=== PATIENT | female | born 1960 | race Caucasian/White ===

== ENCOUNTER 2018-04-02 10:15 | Inpatient (IN) ==
[2018-04-02] MEDS ORDERED: Ipratropium/Albuterol Neb 3 ML IH ONE (10:22)
--- NOTE | 2018-04-02 10:23 | Emergency Department Note ---
Disposition Clinical Impression: Pneumonia Disposition: Home, Self-Care Condition: Good Referrals: Tyler Fuller MD [Primary Care Provider] - Time of Disposition: 11:35 SOB HPI - General Chief Complaint: ED Shortness of Breath/Dyspnea Stated Complaint: shortness of breath Time Seen by Provider: 04/02/18 10:18 Source: patient Mode of arrival: ambulatory Limitations: no limitations Nursing Notes Reviewed: Yes Vital Signs Reviewed: Yes - History of Present Illness On Tuesday the patient started feeling ill in the last week is seen 2 different nurse practitioners. Patient thought she had the flu. Nobody did anything flu testing on her. Today she is getting worse so she came to the ER. She Panacea of rattling in her chest and fever. Pt Subjective Complaint: shortness of breath Onset (ago): day(s) (6 days) Severity: moderate Consistency/Duration: constant Improves with: nothing Worsens with: nothing Associated symptoms: Reports: fever, cough Treatment prior to arrival: other (antibiotics) - Related Data Home Medications Medication Instructions Recorded Confirmed Levofloxacin [Levaquin] 500 mg PO DAILY 04/02/18 04/02/18 Allergies Allergy/AdvReac Type Severity Reaction Status Date / Time Penicillins AdvReac Rash Verified 06/02/15 07:28 Constitutional: Reports: as per HPI, fever Eyes: Denies: eye pain, eye discharge, vision change ENT ED: Denies: ear pain, throat pain, dental pain, hearing loss, epistaxis, congestion, dysphagia Cardiovascular: Denies: chest pain, palpitations, dyspnea on exertion, edema, syncope Respiratory: Reports: as per HPI, cough, dyspnea Gastrointestinal: Denies: abdominal pain, nausea, vomiting, diarrhea, constipation, hematemesis, melena, hematochezia Genitourinary: Denies: dysuria, frequency, hematuria, discharge Musculoskeletal: Denies: back pain, neck pain, arthralgia, myalgia Integumentary: Denies: rash, abrasion, lesions Neurological: Denies: headache, weakness, numbness, paresthesias, confusion, abnormal gait, vertigo Psychiatric: Denies: anxiety, depression, suicidal thoughts, homicidal thoughts, auditory hallucinations, visual hallucinations Endocrine: Denies: fatigue Hematological/Lymphatic: Denies: easy bleeding, easy bruising Allergic/Immunologic: Denies: facial swelling, urticaria Past Medical History - Past Medical History Attestation: Yes The following information was validated with the patient. Source: patient, nursing notes reviewed Medical history: Reports: no medical history Surgical history: Reports: orthopedic, other, other Psychiatric history: Reports: anxiety, depression - Social History Smoking Status: Never smoker Alcohol use: Reports: none Drug use: Reports: none Physical Exam - General Limitations: no limitations General appearance: alert, in no apparent distress - Head Head exam: atraumatic, normocephalic, normal inspection - Eye Eye exam: Present: normal appearance, PERRL, EOMI - ENT ENT exam: normal exam, normal oropharynx, mucous membranes moist - Neck Neck exam: Present: normal inspection, full ROM, trachea midline - Chest Chest inspection: Present: normal inspection, symmetric chest wall rise - Respiratory Respiratory exam: Present: other (Generally diminished breath sounds with scattered rhonchi and a few minimal wheezes) - Cardiovascular Cardiovascular exam: Present: regular rate, normal rhythm, normal heart sounds - Abdominal Exam Abdominal exam: Present: soft, Non-Tender, normal bowel sounds - Extremities Exam Extremities exam: Present: normal inspection, full ROM. Absent: tenderness, pedal edema - Back Exam Back exam: Present: normal inspection, full ROM. Absent: tenderness - Neurological Exam Neurological exam: Present: alert, oriented X3 - Psychiatric Psychiatric exam: Present: normal affect, normal mood - Skin Skin exam: Present: warm, dry, intact Shortness of Breath/Dyspnea - MDM Narrative Medical decision making narrative: I reviewed the patient's medication list Discussed with the case with Dr. Dudley who is graciously agreed to admit the patient and she will be admitted under his care The patient has taken her Levaquin today. - Lab Data Lab results reviewed: Yes I reviewed the patient's lab results. - Radiology Data Radiology results reviewed: Yes I reviewed the patient's radiology results. - EKG Data EKG attestation: Yes I reviewed and interpreted this EKG. EKG results narrative: EKG shows normal sinus rhythm with a rate of 85 bpm. ND intervals 154 ms QRS duration 82 ms QT interval 348 QTC 414 ms R axis of no acute ST-T wave changes 74 ms
[2018-04-02 10:48] LABS: Basophils % 0.1 %; Eosinophils # 0.6 K/mcL (0.0-0.6); Eosinophils % 5.7 %; Hemoglobin 12.1 g/dL (11.5-15.4); Immature Granulocytes % 0.4 % (0-4); Lymphocytes # 1.1 K/mcL (0.6-4.6); Lymphocytes % 10.5 %; Mean Corpuscular HGB Conc 32.7 g/dL (31.6-35.5); Mean Corpuscular Hemoglobin 28.6 pg (28.0-33.3); Mean Corpuscular Volume 87.5 fL (83.0-100.0); Mean Platelet Volume 8.8 fL (9.4-12.4); Monocytes # 0.9 K/mcL (0.0-1.3); Monocytes % 8.1 %; Neutrophils # 7.9 K/mcL (1.6-8.9); Platelet Count 427 K/mcL (140-400); Red Blood Count 4.23 M/mcL (3.82-4.97); Red Cell Distribution Width 13.4 % (11.5-14.5); Segmented Neutrophils % 75.2 %
[2018-04-02 11:05] LABS: BUN/Creatinine Ratio 18 (6-26); Blood Urea Nitrogen 18 mg/dL (6-20); Calcium 8.9 mg/dL (8.6-10.3); Carbon Dioxide 27 mEq/L (23-29); Chloride 103 mEq/L (98-107); Glucose 87 mg/dL (70-105); Osmolality,Calculated 287 (280-300); Potassium 3.6 mEq/L (3.5-5.1); Sodium 138 mEq/L (136-145); eGFR For Non-African Americans 56 (> 60)
[2018-04-02] MEDS ORDERED: Furosemide 20 MG/2 ML VIAL IVP ONE (11:09)
[2018-04-02] MEDS ORDERED: Naloxone 0.4 MG/ML INJ IVP PRN (11:50)
[2018-04-02] MEDS ORDERED: Ipratropium/Albuterol Neb 3 ML IH SCH (12:00)
[2018-04-02] MEDS: Ipratropium/Albuterol Neb 3 ML IH SCH ×4 (12:22→23:15)
[2018-04-02] MEDS: Venlafaxine XR (24 HR) 37.5 MG CAP.ER.24H PO SCH (16:55)
[2018-04-02] MEDS: Acetaminophen 325 MG TABLET PO PRN (16:55)
[2018-04-02] MEDS ORDERED: cefTRIAXone 1,000 MG in Water for inj. (sterile) 20 ML 10 ML IVP ONE (20:08)
[2018-04-02] MEDS ORDERED: Vancomycin 500 MG in 0.9 % Sodium Chloride Mini Bag 100 ML IVPB ONE (22:00)
[2018-04-03] MEDS: Ipratropium/Albuterol Neb 3 ML IH SCH ×2 (03:25→09:02)
[2018-04-03 05:48] LABS: Basophils % 0.1 %; Eosinophils # 1.2 K/mcL (0.0-0.6); Eosinophils % 8.5 %; Hematocrit 36.2 % (35.3-44.9); Immature Granulocytes % 0.4 % (0-4); Lymphocytes # 1.2 K/mcL (0.6-4.6); Lymphocytes % 8.9 %; Mean Corpuscular HGB Conc 33.1 g/dL (31.6-35.5); Mean Corpuscular Hemoglobin 28.6 pg (28.0-33.3); Mean Corpuscular Volume 86.4 fL (83.0-100.0); Mean Platelet Volume 8.8 fL (9.4-12.4); Monocytes # 0.6 K/mcL (0.0-1.3); Monocytes % 4.5 %; Neutrophils # 10.6 K/mcL (1.6-8.9); Platelet Count 406 K/mcL (140-400); Red Blood Count 4.19 M/mcL (3.82-4.97); Red Cell Distribution Width 13.4 % (11.5-14.5); Segmented Neutrophils % 77.6 %
[2018-04-03 06:08] LABS: BUN/Creatinine Ratio 19 (6-26); Blood Urea Nitrogen 14 mg/dL (6-20); Calcium 8.1 mg/dL (8.6-10.3); Carbon Dioxide 27 mEq/L (23-29); Chloride 102 mEq/L (98-107); Glucose 122 mg/dL (70-105); Osmolality,Calculated 286 (280-300); Potassium 3.2 mEq/L (3.5-5.1); Sodium 137 mEq/L (136-145); eGFR For Non-African Americans > 60 (> 60)
[2018-04-03] MEDS: Levothyroxine 25 MCG TABLET PO SCH (06:49)
[2018-04-03] MEDS ORDERED: levoFLOXacin 500 MG TABLET PO SCH (09:00)
[2018-04-03] MEDS ORDERED: Aminoglycoside Consult 1 EACH MC ONE (10:17)
--- NOTE | 2018-04-03 10:19 | Internal Med History&Physical ---
Date of Encounter: 04/03/18 Time of Encounter: 09:50 Assessment and Plan (1) Pneumonia Current visit: Yes Status: Acute She was given Levaquin in emergency room. IV vancomycin and Rocephin have been added. Lactobacillus will be ordered and further workup done as needed. Qualifiers: Laterality: bilateral Lung location: lower lobe of lung Qualified Code(s): J18.1 - Lobar pneumonia, unspecified organism (2) Hypokalemia Current visit: Yes Status: Acute Potassium level has decreased to 3.2 today. Supplemental potassium will be given and labs monitored. Internal Medicine - H&P: HPI Chief complaint: Dyspnea and cough Admitted From: Emergency Dept Plans for Post Hospital Care: Home History of present illness: Ms. Romero is a 58 year old female who came to emergency room stating she had onset of dyspnea and cough approximately 5 days earlier. She saw a local nurse practitioner at an urgent care in [place] and received antibiotics and other interventions. When she did not feel improved after 3 days she went to a different urgent care and saw a nurse practitioner who gave her a different antibiotic and additional medications. She did not feel improved after 2 days so came to emergency room for evaluation. She was found to have evidence of bilateral pneumonia and was admitted to [facility] floor for ongoing care needs. She states she has a nonproductive cough and denies any hemoptysis. Respiratory history is significant for having smoked from age [age] never exceeding 1 pack per day. She has not had PFTs and does not use home oxygen. She has not been tested for sleep apnea. She denies other known lung disease. Past Med Surg Social Fam HX - Past Medical History Medical history: arthritis Psychiatric history: anxiety, depression - Past Surgical History Surgical History: orthopedic, other, other Additional surgical history: 2 surgeries to bilat feet for heel spurs - Social History Smoking Status: Former smoker Smokeless Tobacco Status: No Alcohol use: none Drug use: none - Family History Son Adopted: [place]: Buck Romero Age: 40 Living Status: Still Living Hx Family Cardiac Disorders: Yes (mother A-Fib, CHF) Hx Family Respiratory Disorders: Yes Hx Family Cancer: Yes (Father) Hx Family GI Disorders: No Hx Family Genitourinary Disorders: Yes Hx Family Endocrine Disorder: Yes (Self) Hx Family Musculoskeletal Disorders: No Hx Family Neuromuscular Disorders: No Hx Family Neurologic Disorders: No Hx Family HEENT Disorders: No Hx Family Autoimmune Disorders: No Hx Family Reproductive Disorders: No Hx Family Psychosocial Disorders: No Hx Family Medical Disorders: No Internal Medicine - H&P: Meds Fluticasone Propionate Nasal [Flonase] 50 mcg NS DAILY 04/02/18 [History] Ibuprofen [Ibu] 800 mg PO Q8H 04/02/18 [History] Levofloxacin [Levaquin] 500 mg PO DAILY 04/02/18 [History] Levothyroxine [Synthroid] 25 mcg PO 0630 04/02/18 [History] Venlafaxine XR (24 HR) [Effexor XR] 37.5 mg PO DAILY 04/02/18 [History] Allergy/AdvReac Type Severity Reaction Status Date / Time Penicillins AdvReac Rash Verified 06/02/15 07:28 All Systems PM: A 10-system review of systems was performed and is negative for pertinent findings except as documented above in the HPI. Review of systems: Gen.: She states her weight has been stable for several months Cardiovascular: She denies hypertension TN heart failure angina DVT or pulmonary embolus Respiratory: As per history of present illness GI: She denies disorders of her liver gallbladder or exocrine pancreas : She denies hematuria dysuria or kidney stones Neurologic: She denies large distribution strokes or seizures. Endocrine: She has hypothyroidism. She denies diabetes or hyperlipidemia Hematology/oncology: She denies blood disorders cancers or anemia Psychiatric: She has anxiety and depression but denies other mental health diagnoses. [place] skeletal: She has had foot surgery bilaterally. She has DJD but denies gout or other bone joint or muscle disorders. - Constitutional Vitals: Temp Pulse Resp BP Pulse Ox 98.1 F 80 14 113/72 94 04/03/18 06:42 04/03/18 06:42 04/03/18 09:02 04/03/18 06:42 04/03/18 09:12 Exam: Gen.: She is a well-developed well-nourished female resting comfortably in bed who appears in minimal distress at present time HEENT: Head is atraumatic and normocephalic. Eyes: EOMI. There is no scleral icterus. Mouth: Mucosa is moist. Neck: Supple and nontender. There is no thyromegaly or adenopathy noted. Heart: Regular without murmurs gallops or ectopics Lungs: No wheezes or crackles are heard. She has diminished breath sounds with egophony in the bases bilaterally. Abdomen: Soft and nontender. No masses or guarding are noted. Extremities: There is no cyanosis edema or clubbing noted. Dorsalis pedis and posttibial pulses are 1-2 over 2 bilaterally. Neurologic: Mental status: She is talkative and a good historian. Cranial nerves: Smile is symmetric. Forehead wrinkles bilaterally. Tongue protrudes midline. EOMI. Motor: There is no pronator drift. Cerebellar: Finger to nose is intact bilaterally. Skin: Warm and dry Internal Med - H&P Results - Labs CBC & Chem 7: 04/03/18 05:13 04/03/18 05:13 Labs: Short CBC 04/02/18 04/03/18 Range/Units 10:40 05:13 WBC 10.5 13.6 H (4.3-11.1) K/mcL Hgb 12.1 12.0 (11.5-15.4) g/dL Hct 37.0 36.2 (35.3-44.9) % Plt Count 427 H 406 H (140-400) K/mcL Neutrophils # 7.9 10.6 H (1.6-8.9) K/mcL BMP 04/02/18 04/03/18 10:40 05:13 Sodium 138 137 Potassium 3.6 3.2 L Chloride 103 102 Carbon Dioxide 27 27 BUN 18 14 Creatinine 1.01 0.73 Glucose 87 122 H Calcium 8.9 8.1 L Cardiac Enzymes 04/02/18 Range/Units 10:40 Troponin I < 0.03 (< 0.04) ng/mL - Impressions ITS Impressions Chest X-Ray 04/02/18 10:20 IMPRESSION: Vascular congestion with basilar atelectasis and possible minimal left effusion. D/ / 04/02/2018 10:50:35 Fausto Mo MD / [facility] Interpreting Provider: Fausto Mo MD Chest X-Ray 04/03/18 07:00 IMPRESSION: Progression of bibasilar pulmonary infiltrates since yesterday's exam. This raises concern for multifocal pneumonia with small parapneumonic effusions bilaterally. Clinical correlation and follow-up chest radiographs are recommended. D/ / Melvin Wade MD / Melvin Wade MD Interpreting Provider: Melvin Wade MD
[2018-04-03] MEDS: 0.45 % Sodium Chloride w/KCl 20 MEQ/1,000 ML MLS IVC SCH (11:49)
[2018-04-03] MEDS: Albuterol 2.5 MG/3 ML NEBULIZER IH PRN (14:12)
[2018-04-03] MEDS: Venlafaxine XR (24 HR) 37.5 MG CAP.ER.24H PO SCH (16:42)
[2018-04-03] MEDS: Acetaminophen 325 MG TABLET PO PRN (16:42)
--- NOTE | 2018-04-03 18:03 | Electrocardiograph Report ---
[place] [id number] Test Date: 2018-04-02 Pat Name: Magdalena Romero Department: EDP-16 Room: [facility] Gender: F Core Carrier: : 1960 Requested By: Gabriel Call Order Number: [id number] Reading MD: Gregory Montiel Measurements Intervals [place] Rate: 85 P: 70 MA: 154 QRS: 74 QRSD: 82 T: 51 QT: 348 QTc: 414 Interpretive Statements Sinus rhythm Electronically Signed On 04-03-2018 18:01:37 EST by Gregory Montiel
[2018-04-03] MEDS: Lactobacillus 1 EACH CAP.SPRINK PO SCH (22:37)
[2018-04-04] MEDS: 0.45 % Sodium Chloride w/KCl 20 MEQ/1,000 ML MLS IVC SCH ×2 (01:31→19:16)
[2018-04-04 06:02] LABS: Basophils % 0.1 %; Eosinophils # 1.2 K/mcL (0.0-0.6); Eosinophils % 7.4 %; Hematocrit 37.2 % (35.3-44.9); Hemoglobin 12.2 g/dL (11.5-15.4); Lymphocytes % 6.2 %; Mean Corpuscular HGB Conc 32.8 g/dL (31.6-35.5); Mean Corpuscular Hemoglobin 28.4 pg (28.0-33.3); Mean Corpuscular Volume 86.7 fL (83.0-100.0); Mean Platelet Volume 9.1 fL (9.4-12.4); Monocytes # 0.3 K/mcL (0.0-1.3); Monocytes % 1.9 %; Neutrophils # 13.6 K/mcL (1.6-8.9); Platelet Count 410 K/mcL (140-400); Red Blood Count 4.29 M/mcL (3.82-4.97); Red Cell Distribution Width 13.5 % (11.5-14.5); Segmented Neutrophils % 83.4 %
[2018-04-04] MEDS: Levothyroxine 25 MCG TABLET PO SCH (06:18)
[2018-04-04 06:25] LABS: BUN/Creatinine Ratio 19 (6-26); Blood Urea Nitrogen 10 mg/dL (6-20); Calcium 8.3 mg/dL (8.6-10.3); Carbon Dioxide 27 mEq/L (23-29); Chloride 105 mEq/L (98-107); Glucose 142 mg/dL (70-105); Magnesium 1.8 mg/dL (1.6-2.6); Osmolality,Calculated 289 (280-300); Potassium 3.6 mEq/L (3.5-5.1); Sodium 139 mEq/L (136-145); eGFR For Non-African Americans > 60 (> 60)
[2018-04-04] MEDS: Albuterol 2.5 MG/3 ML NEBULIZER IH PRN ×4 (07:35→20:32)
[2018-04-04] MEDS: Acetaminophen 325 MG TABLET PO PRN (08:00)
[2018-04-04] MEDS: Lactobacillus 1 EACH CAP.SPRINK PO SCH (08:00)
--- NOTE | 2018-04-04 10:15 | Internal Med Progress Note ---
Date of Encounter: 04/04/18 Time of Encounter: 10:06 - Assessment and plan (1) Pneumonia Current Visit: Yes Status: Acute Assessment and plan: April 04. Suspect viral etiology. Continue Levaquin and vancomycin with lactobacillus for possible bacterial etiology. Qualifiers: Laterality: bilateral Lung location: lower lobe of lung Qualified Code(s): J18.1 - Lobar pneumonia, unspecified organism (2) Hypokalemia Current Visit: Yes Status: Acute Assessment and plan: April 04. Resolved. Continue to monitor labs. - Subjective Interval history: April 04. She has no new complaints but states she "feels rough". - Constitutional Vitals: Temp Pulse Resp BP Pulse Ox 98.5 F 86 20 116/77 87 04/04/18 07:21 04/04/18 07:21 04/04/18 07:35 04/04/18 07:04/04/18 07:35 Exam: She is lying in bed wearing oxygen by nasal cannula. Bedside monitor shows saturations 87-90% wearing oxygen. Her affect is overall cheerful. I reviewed her medications and lab results. Internal Medicine: Result - Labs CBC & Chem 7: 04/04/18 05:15 04/04/18 05:15 Labs: Short CBC 04/04/18 Range/Units 05:15 WBC 16.3 H (4.3-11.1) K/mcL Hgb 12.2 (11.5-15.4) g/dL Hct 37.2 (35.3-44.9) % Plt Count 410 H (140-400) K/mcL Neutrophils # 13.6 H (1.6-8.9) K/mcL BMP 04/04/18 05:15 Sodium 139 Potassium 3.6 Chloride 105 Carbon Dioxide 27 BUN 10 Creatinine 0.53 L Glucose 142 H Calcium 8.3 L - Impressions Impressions Chest X-Ray 04/02/18 10:20 IMPRESSION: Vascular congestion with basilar atelectasis and possible minimal left effusion. D/ / 04/02/2018 10:50:35 Fausto Mo MD / [facility] Interpreting Provider: Fausto Mo MD Consult Discharge Plan - Plan Referrals: Tyler Fuller MD [Primary Care Provider] - 1 week
[2018-04-04] MEDS: Venlafaxine XR (24 HR) 37.5 MG CAP.ER.24H PO SCH (18:46)
[2018-04-04] MEDS ORDERED: Levofloxacin 750 MG/150 ML 750 MG/150 ML BAG IVPB SCH (19:00)
[2018-04-04 20:29] LABS: ABG Base Excess 3 mEq/L (-2 to 3); ABG HCO3 28 mEq/L (21-27); ABG Oxygen Saturation 93 % (95-98); ABG PCO2 44 mmHg (35-45); ABG PH 7.41 pH Units (7.32-7.45); ABG PO2 66 mmHg (85-104); ABG TCO2 30 mEq/L (20-26)
[2018-04-04] MEDS ORDERED: *HR* Etomidate 20 MG/10 ML AMPUL IVP ONE (21:45)
[2018-04-04] MEDS ORDERED: *HR* Succinylcholine 200 MG/10 ML VIAL IVP ONE (21:46)
[2018-04-04] MEDS ORDERED: *HR* Midazolam HCl 2 MG/2 ML VIAL IVP ONE (21:47)
[2018-04-04] MEDS ORDERED: Propofol 500 MG/50 ML INFUS..BTL ONE (22:28)
[2018-04-05] MEDS: Lactobacillus 1 EACH CAP.SPRINK PO SCH (00:44)
[2018-04-05 02:22] VITALS: BP 98/60
--- NOTE | 2018-04-05 05:21 | Emergency Department Note ---
START Narrative - START START: I was contacted by the hospitalist, Dr. Dudley regarding this patient. He stated that she has been having increasing respiratory difficulties and he was planning on transferring her to [facility] but the accepting physician there has requested that the patient be intubated prior to transport to secure her airway and prevent further deterioration. He states the patient has been in the hospital for 2 days with what he initially thought was a likely viral bronchitis or pneumonia with shortness of breath. He states that she was started on IV vancomycin and Levaquin for the possibility of bacterial pneumonia given her clinical deterioration. States they just repeated a chest x-ray this evening that showed worsening bilateral opacities and was concerning for ARDS. He spoke to Dr. Pierre at [facility] who is planning on having the patient transferred to the ICU there. She has been accepted but needs to be intubated prior to transfer and Dr. Dudley is not in house at this time. I went to speak to the patient and obtained written informed consent regarding the intubation. Patient was on a oxymask at 15 L with oxygen saturations in the 80s. She was visibly tachypneic with mild respiratory distress and increased work of breathing. Lung sounds were coarse throughout. With nursing staff, respiratory and radiology at the bedside patient was sedated with 20mg of etomidate and paralyzed with 100 mg of succinylcholine. She was initially very difficult to o btain a seal on and bag with the BVM and began desaturating. An oral airway was placed and a better seal was obtained and patient was oxygenated for a few minutes using a 2-person technique to increase her saturations back into the 90s. Patient began to wake up at that time and was given some IV versed. She remained awake and had to be re-sedated and paralyzed with a second dose of both etomidate and succinylcholine. Patient was then successfully intubated on the first attempt with a 7.0 ET tube using a glidoscope. Placement was confirmed by visualization of passage through the cords, capnometry, bilateral breath sounds and absence of epigastric sounds and tube was secured at 18 cm at the teeth. Patient saturations continued to improve with BVM ventilation after intubation. Chest x-ray was obtained which showed satisfactory placement and near whiteout opacity of both lungs on my review. Patient received additional Versed and finally a propofol drip for continued sedation. Additional IV access and an OG tube was placed by the inpatient nursing staff who then proceeded with transfer arrangements to [facility].
--- NOTE | 2018-04-05 11:20 | Discharge Summary ---
Orders not resulted at time of discharge: Pending orders 04/02/18 10:40 Culture,Blood [BC] Stat Date of Encounter: 04/05/18 Time of Encounter: 11:15 - Discharge Diagnosis (1) Pneumonia Priority: Primary Status: Acute Qualifiers: Qualified Code(s): J18.1 - Lobar pneumonia, unspecified organism (2) Hypokalemia Priority: Secondary Status: Acute Hospital course: Ms. Romero is a 58 year old female who came to emergency room stating she had onset of dyspnea and cough approximately 5 days earlier. She saw a local nurse practitioner at an urgent care in [place] and received antibiotics and other interventions. When she did not feel improved after 3 days she went to a different urgent care and saw a nurse practitioner who gave her a different antibiotic and additional medications. She did not feel improved after 2 days so came to emergency room for evaluation. She was found to have evidence of bilateral pneumonia and was admitted to [facility] for ongoing care needs. Initial orders were written by the emergency room physician. I saw her on April 03 and performed the history and physical. She was started on Levaquin and vancomycin IV. Rocephin was given in emergency room. Lactobacillus was added. Follow-up lab work on April 04 showed WBC increased to 16.3 K with wor sening left shift on differential. In the late afternoon of April 04 she became more dyspneic. Increased oxygen was required to maintain satisfactory oxygenation. She continued to decline and requested transfer to [facility] I spoke with the hospitalist who agreed to accept her in transfer. She was electively intubated by the ER physician Dr. Davenport prior to transport to [facility] - Time Spent with Patient Total time spent providing and/or coordinating discharge services: - Discharge Medications Home Medications: Fluticasone Propionate Nasal [Flonase] 50 mcg NS DAILY 04/02/18 [History] Ibuprofen [Ibu] 800 mg PO Q8H 04/02/18 [History] Levofloxacin [Levaquin] 500 mg PO DAILY 04/02/18 [History] Levothyroxine [Synthroid] 25 mcg PO 0630 04/02/18 [History] Venlafaxine XR (24 HR) [Effexor XR] 37.5 mg PO DAILY 04/02/18 [History] Allergies/Adverse Reactions: Allergy/AdvReac Type Severity Reaction Status Date / Time Penicillins AdvReac Rash Verified 06/02/15 07:28 Date of admission: 04/03/18 18:12 Primary care physician: Tyler Fuller MD - Constitutional Vitals: Temp Pulse Resp BP Pulse Ox 99.6 F 113 23 98/60 92 04/04/18 19:21 04/04/18 23:15 04/04/18 23:23 04/04/18 23:15 04/04/18 23:23 - Patient Status Disposition: Transfer Short-Term Hosp Condition: Critical - Discharge Instructions Follow Up With: Tyler Fuller MD [Primary Care Provider] - 1 week
== END 2018-04-04 23:58 | disposition short-term general hospital (02) | DRG 208 ==
LOC: INPPIK 10:15 → EMEROOPIK 10:15 → INPPIK 12:04
PROVIDERS: ADMIT Internal Medicine; ATTEND Internal Medicine